=== PATIENT | female | born 1950 | race Caucasian/White ===

== ENCOUNTER → 2020-10-21 | Outpatient (CLI) | payer MEDICARE ==
[~2020-10-21] MED LIST: LEVAQUIN750 MG PO; PRAVASTATIN SOD20 MG PO
== END ==
LOC: KOH-I 11:29
DX: R91.1 Solitary pulmonary nodule (principal); R91.8 Other nonspecific abnormal finding of lung field
CPT/HCPCS: 71250

== ENCOUNTER → 2021-04-27 | Outpatient (CLI) | payer MEDICARE | LOC: KOH-I 09:49 | DX: R91.1 Solitary pulmonary nodule (principal) | CPT/HCPCS: 71250 ==

== ENCOUNTER → 2021-10-26 | Outpatient (CLI) | payer MEDICARE | LOC: KOH-I 13:42 | DX: R91.1 Solitary pulmonary nodule (principal) | CPT/HCPCS: 71250 ==